=== PATIENT | female | born 1960 | race Caucasian/White ===

== ENCOUNTER → 2024-01-13 13:34 | Outpatient (REF) | payer OTHER, SELFPAY | LOC: MRI 3T 13:34 | PROVIDERS: ATTENDING PHYSICIAN Orthopaedic Surgery Sports Medicine; FAMILY PHYSICIAN Internal Medicine | DX: S43.421A Sprain of right rotator cuff capsule, initial encounter (principal) | CPT/HCPCS: 23350; 73040; 73222 ==